=== PATIENT | female | born 1950 | race Caucasian/White ===

== ENCOUNTER 2016-08-16 07:33 | Day surgery (SDC) | payer BC ==
[2016-08-14 08:26] VITALS: BMI 40.7
[~2016-08-16 07:33] MED LIST: LACTATED RINGERS 1,000 ML IV SCH; LIDOCAINE 1% 20 ML VIAL (10MG/ML) FOR IV START INTRADERMA PRN
[2016-08-16 07:47] VITALS: RESP 16; TEMP 98.3
[2016-08-16] MEDS ORDERED: PROPOFOL 10 MG/ML 20 ML VIAL IV ONE (08:25)
--- NOTE | 2016-08-16 08:54 | P.PCN ---
Date of Procedure: 08/16/16 Preoperative Diagnosis: Postoperative Diagnosis: Procedure(s) Performed: BRIEF HISTORY: Patient is a 65-year-old pleasant white female, scheduled for an elective colonoscopy as a part of screening for colorectal neoplasia. PROCEDURE PERFORMED: Colonoscopy with snare polypectomy. PREOPERATIVE DIAGNOSIS: Screening for colon cancer. IV sedation per Anesthesia. PROCEDURE: After informed consent was obtained, the patient, was brought into the endoscopy unit. IV sedation was administered by Anesthesia under continuous monitoring. Digital rectal examination was normal. Initially the Olympus CF- 160 flexible video colonoscope was then inserted in the rectum, gradually advanced into the cecum without any difficulty. Careful examination was performed as the scope was gradually being withdrawn. Ileocecal valve and the appendiceal orifice were visualized and appeared normal. Prep was excellent. Mucosa of the cecum, ascending colon, transverse colon, descending colon, sigmoid colon, and rectum appeared normal. There was a 72 admitted to polyp noted in the rectosigmoid area which was removed by snare polypectomy. Scattered sigmoid diverticulosis seen. Retroflexion was performed in the rectum and no lesions were seen. The patient tolerated the procedure well. IMPRESSION: 7-8 mm recto sigmoid polyp status post polypectomy Scattered left-sided diverticulosis. RECOMMENDATIONS: Findings of this examination were discussed with the patient as well as her family. She was advised to follow with the biopsy results. If the biopsy shows a tubular adenoma she can have a repeat colonoscopy in 5 years. Implants: Indications for Procedure: Operative Findings: Description of Procedure:
[2016-08-16 09:15] LABS: Glucose,Whole Blood 96 mg/dL (75-99)
[2016-08-16 09:19] VITALS: BP 104/71; PULSE 58
== END 2016-08-16 09:46 | disposition home or self-care (01) ==
LOC: ORWHC2ENDO 07:33
PROVIDERS: ATTEND Internal Medicine Gastroenterology
DX: Z12.11 Encounter for screening for malignant neoplasm of colon (principal); D12.5 Benign neoplasm of sigmoid colon; K57.30 Diverticulosis of large intestine without perforation or abscess without bleeding; I10 Essential (primary) hypertension; E11.9 Type 2 diabetes mellitus without complications; K21.9 Gastro-esophageal reflux disease without esophagitis; Z79.84 Long term (current) use of oral hypoglycemic drugs; Z79.82 Long term (current) use of aspirin; Z79.899 Other long term (current) drug therapy; Z88.5 Allergy status to narcotic agent
CPT/HCPCS: 88305; 45385; J2704

== ENCOUNTER → 2016-09-12 | Outpatient (CLI) | payer BC ==
--- NOTE | 2016-09-13 08:59 | MM ---
Reason for exam: screening (asymptomatic). Last mammogram was performed 1 year and 3 months ago. History: Patient is postmenopausal. Benign stereotactic core biopsy of the right breast, July 19, 1999. Benign excisional biopsy of the right breast, July 12, 1997. Excisional biopsy of the right breast. Taking progesterone for 6 years. Physical Findings: A clinical breast exam by your physician is recommended on an annual basis and results should be correlated with mammographic findings. MG Screening Mammo w CAD Bilateral CC and MLO view(s) were taken. Prior study comparison: June 08, 2015, bilateral MG screening mammo w CAD. September 24, 2013, bilateral MG screening mammo w CAD. There are scattered fibroglandular densities. No significant changes when compared with prior studies. ASSESSMENT: Benign, BI-RAD 2 RECOMMENDATION: Routine screening mammogram of both breasts in 1 year.
== END | disposition home or self-care (01) ==
LOC: RADMAMWWP 12:18
PROVIDERS: ATTEND Family Medicine
DX: Z12.31 Encounter for screening mammogram for malignant neoplasm of breast (principal)

== ENCOUNTER → 2017-08-04 | Outpatient (CLI) | payer BC | END | disposition home or self-care (01) | LOC: LABWHC1 13:15 | PROVIDERS: ATTEND Orthopaedic Surgery Hand Surgery | DX: M65.341 Trigger finger, right ring finger (principal) | CPT/HCPCS: 93005 ==

== ENCOUNTER → 2019-05-05 | Outpatient (CLI) | payer BC ==
--- NOTE | 2019-05-05 08:33 | BD ---
EXAMINATION TYPE: Axial Bone Density DATE OF EXAM: 05/05/2019 COMPARISON: 2003 CLINICAL HISTORY: Z 13.820 Height: 65.5 Weight: 241.2 FRAX RISK QUESTIONS: Alcohol (3 or more units per day): no Family History (Parent hip fracture): no Glucocorticoids (More than 3mos): no (Ex: prednisone, prednisolone, methylprednisolone, dexamethasone, and hydrocortisone). History of Fracture in Adulthood: yes Secondary Osteoporosis: 1. Type 1 Diabetes: no 2. Hyperthyroidism: no 3. Menopause before 45: YES 4. Malnutrition: no 5. Chronic liver disease: no Rheumatoid Arthritis: no Current Tobacco Use: no RISK FACTORS HISTORY OF: Family History of Osteoporosis: no Active: yes Diet low in dairy products/other sources of calcium: at least one serving a day Postmenopausal woman: YES Take estrogen and/or progesterone medications: not now How long: progesterone about 6 years Lost more than 2 inches in height since high school: no, height at one time was about 67.5 inches Frequent falls: no Poor Health: no Hyperparathyroidism: no Adrenal Insufficiency: no MEDICATIONS: Prednisone or other steroids: no Thyroid Medications: no Osteoporosis Medications: no Additional Medications: Metformin ; blood pressure med Additional History: type 2 diabetic EXAM MEASUREMENTS: Bone mineral densitometry was performed using the [employer] System. Bone mineral density as measured about the Lumbar spine is: ----- L1-L4(G/cm2): 1.250 T Score Values are as follows: ----- L2: 1.2 ----- L3: 0.6 ----- L4: -0.5 ----- L1-L4: 0.6 Bone mineral density has: Increased 5.0% since study of: 11/15/2003 Bone mineral density about the R hip (g/cm2): 1.042 Bone mineral density about the L hip (g/cm2): 1.090 T Score values are as follows: -----R Neck: 0.0 -----L Neck: 0.4 -----R Total: 0.6 -----L Total: 0.7 Bone mineral density has: Decreased -2.0% since study of: 11/15/2003 IMPRESSION: Normal (Values between +1 and -1 indicate normal bone mass). Consider repeating this study in 5 year s or sooner if there is some new clinical indication. NOTE: T-SCORE=SD OF THE YOUNG ADULT MEAN.
--- NOTE | 2019-05-10 11:17 | MM ---
Reason for exam: screening (asymptomatic). Last mammogram was performed 2 years and 8 months ago. History: Patient is postmenopausal. Benign stereotactic core biopsy of the right breast, July 19, 1999. Benign excisional biopsy of the right breast, July 12, 1997. Excisional biopsy of the right breast. Taking progesterone for 6 years. Physical Findings: A clinical breast exam by your physician is recommended on an annual basis and results should be correlated with mammographic findings. MG Screening Mammo w CAD Bilateral CC and MLO view(s) were taken. Prior study comparison: September 12, 2016, bilateral MG screening mammo w CAD. June 08, 2015, bilateral MG screening mammo w CAD. There are scattered fibroglandular densities. Benign appearing bilateral calcifications. No suspicious abnormality. Right biopsy marker. No significant changes when compared with prior studies. ASSESSMENT: Benign, BI-RAD 2 RECOMMENDATION: Routine screening mammogram of both breasts in 1 year.
== END | disposition home or self-care (01) ==
LOC: RADMAMWWP 06:51
PROVIDERS: ATTEND Family Medicine
DX: Z12.31 Encounter for screening mammogram for malignant neoplasm of breast (principal); Z13.820 Encounter for screening for osteoporosis; M81.0 Age-related osteoporosis without current pathological fracture
CPT/HCPCS: 77067; 77080

== ENCOUNTER 2019-05-09 | Emergency (ER) | payer BC, MEDICARE | END 2019-05-09 07:47 | disposition home or self-care (01) | CPT/HCPCS: 30901; 36415; 85025; 96374; 99284 ==

== ENCOUNTER → 2021-08-17 | Outpatient (CLI) | payer MEDICARE, OTHER ==
--- NOTE | 2021-08-13 09:08 | P.PN ---
Progress Note - Text This is an evaluation prior to stress testing Patient referred by Dr. 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 fib I evaluated her prior to the stress test She is currently scheduled for Cardiolite stress test which I would cancel She is on losartan and hydrochlorothiazide blood pressure is normal I would recommend continuing losartan Hold hydrochlorothiazide for at least a week or 2 and reevaluate need for this Start metoprolol succinate 50 mrem daily for rate control of atrial fibrillation On very preliminary evaluation, her ALAYNA VASC score seems to be 3 and anticoagulation would be indicated She will see Dr. Millard tomorrow or day after tomorrow for reevaluation I would reschedule her stress test to Friday On that day if she is in sinus rhythm an exercise Cardiolite stress test can be performed If she is still in atrial fibrillation and is rate controlled then a Lexiscan Cardiolite stress test be performed If her rates are not controlled I would defer stress testing until rates are well controlled Hold off on 2-D echo and Doppler study until rates are well controlled Impression 70-year-old female with First documentation of A. fib A. fib with RVR Diabetes hemoglobin A1c 6.9 LDL 93, total cholesterol 170, HDL 55 TSH 1.9
[~2021-08-17] MED LIST changes: -LACTATED RINGERS 1,000 ML IV SCH; -LIDOCAINE 1% 20 ML VIAL (10MG/ML) FOR IV START INTRADERMA PRN; +REGADENOSON 0.4 MG/5 ML SYRINGE IV ONE
--- NOTE | 2021-08-17 10:54 | P.PN ---
Progress Note - Text This is a 70 year old female with a past medical history of Type 2 diabetes, hypertension, dyslipidemia. She follows with Dr. Millard. She was referred by Dr. Millard for stress test. On Friday08/13/2021, she was found to be in atrial fibrillation with RVR between 130 540 beats a minute at rest. Stress test was cancelled she was prescribed metoprolol succinate, and followed up with Dr. Millard. Stress test was rescheduled to today. She was in sinus mechanism prior to stress test. No symptoms of chest pain, shortness of breath or palpitations. She did have a few episodes of atrial fibrillation with controlled rates prior to stress test and spontaneously converted back to sinus mechanism. Plan for Lexiscan stress test today. Her ALAYNA VASC score is a 4 and anticoagulation is indicated. We will complete Lexiscan stress test today. Start Eliquis 5mg BID, prescription given to patient and she will receive a free month at the [facility] in the hospital. She will follow up with Dr. Bruner next week has an appointment on 08/21/2021. This was discussed with Dr. Bruner. Nurse practitioner note has been reviewed by physician. Signing provider agrees with the documented findings, assessment, and plan of care.
--- NOTE | 2021-08-17 11:03 | CA ---
Lexiscan Nuclear Stress Test Report Name: Lakisha Eastman Exam Date: 08/17/2021 10:28 Exam Location: [place] [facility] Ht (in): 65 Wt (lb): 254 BSA: 2.19 Ordering Phys: Galdino Millard MD Referring Phys: UMESH,, Technologist: Tomi Rhodes Age: 70 Gender: F : 1950 Procedure CPT: Indications: E11.9 SANDRA, I10 HTN, R06.09 DYSPNEA ICD-10 Codes: Patient History: Medications: HYDROCHLOROTHIAZIDE, METOPROLOL, ASA, MVI, METFORMIN, VIT D, LOBARTAIN, OMEPERAZOLE, ATORVASTATIN, MELATONIN Meds past 24 hrs: Pretest Chest Pain: STRESS TEST Lexiscan Protocol Exercise Duration (min:sec): 02:[address] Depressions (mm): Angina Score: Angel Score: Resting HR (bpm): 66 Peak HR (bpm): 88 Resting BP (mmHg): 131 / 84 Peak BP (mmHg): 163 / 87 MPHR: 152 Target HR: 129 % MPHR: 58 METS: 1.0 Total Dose: Peak Dose: Atropine: Double Product: 99962 BP Response: Stress Termination: Stress Symptoms: NO SYMPTOMS Stress Summary: ECG ANALYSIS Resting ECG: Stress ECG: CONCLUSIONS Baseline to EKG shows negatively oriented P waves in the inferior leads consistent with a low atrial focus/coronary sinus rhythm Normal heart rate and blood pressure response at baseline Baseline heart rate 68 beats a minute, Baseline blood pressure 131/80 Patient received Lexiscan infusion per protocol Heart rate and blood pressure remained stable No symptoms No ECG evidence for ischemia P waves normalized, upright P waves in the inferior leads during Lexiscan infusion Dr. Roverto Bruner MD (Electronically Signed) Final Date: 17 August 2021 11:02
--- NOTE | 2021-08-17 12:38 | NM ---
EXAMINATION TYPE: NM stress lexiscan cardiolite DATE OF EXAM: 08/17/2021 COMPARISON: NONE HISTORY: E11.9 SANDRA, I10 HTN, R06.09 DYSPNEA TECHNIQUE: After the intravenous administration of 9.76 mCi Tc 99m Sestamibi - Cardiolite resting SP ECT images acquired 50 minutes post injection. The patient received 0.4mg Lexiscan, 25.4 mCi Tc 99m Sestamibi - Stress images obtained [address] injection FINDINGS: Review of stress and rest SPECT images demonstrates reversible ischemia involving the apical lateral wall. Fixed defect anterior wall. Gated analysis shows normal wall motion with an estimated left vent ricular ejection fraction of 61 %. IMPRESSION: Findings felt to reflect a reversible ischemia apical lateral wall. Correlate clinically.
== END | disposition home or self-care (01) ==
LOC: RADNMMAIN 08-13 08:23
PROVIDERS: ATTEND Family Medicine
DX: E11.9 Type 2 diabetes mellitus without complications (principal); I10 Essential (primary) hypertension; R06.09 Other forms of dyspnea
CPT/HCPCS: 93017; 78452; A9500

== ENCOUNTER → 2021-12-12 | Outpatient (CLI) | payer MEDICARE, OTHER ==
--- NOTE | 2021-12-13 07:41 | MM ---
Reason for Exam: Screening (asymptomatic). Last mammogram was performed 2 year(s) and 7 month(s) ago. Patient History: Menarche at age 14. First Full-Term at age 22. Postmenopausal. Patient used Progesterone for 6 years. Excisional Biopsy on the Right side. 07/19/1999, Benign Stereotactic Core Biopsy on the right side. 07/12/1997, High risk Excisional Biopsy on the right side. Risk Values: Sarah Beth 5 year model risk: 2.3%. NCI Lifetime model risk: 7.4%. Prior Study Comparison: 06/08/2015 Bilateral Screening Mammogram, [facility]. 09/12/2016 Bilateral Screening Mammogram, [facility]. 05/05/2019 Bilateral Screening Mammogram, [facility]. Tissue Density: There are scattered fibroglandular densities. Findings: Analyzed By CAD. There are scattered small benign-appearing round calcifications bilaterally redemonstrated. Mammotome biopsy clip in the right breast is again seen. There is no suspicious group of microcalcifications or new suspicious mass in either breast. Overall Assessment: Benign, BI-RAD 2 Management: Screening Mammogram of both breasts in 1 year. A clinical breast exam by your physician is recommended on an annual basis and results should be correlated with mammographic findings. Electronically signed and approved by: Eliu Ortiz M.D.
--- NOTE | 2021-12-13 07:41 | MM ---
Reason for Exam: Screening (asymptomatic). Last mammogram was performed 2 year(s) and 7 month(s) ago. Patient History: Menarche at age 14. First Full-Term at age 22. Postmenopausal. Patient used Progesterone for 6 years. Excisional Biopsy on the Right side. 07/19/1999, Benign Stereotactic Core Biopsy on the right side. 07/12/1997, High risk Excisional Biopsy on the right side. Risk Values: Sarah Beth 5 year model risk: 2.3%. NCI Lifetime model risk: 7.4%. Prior Study Comparison: 06/08/2015 Bilateral Screening Mammogram, [facility]. 09/12/2016 Bilateral Screening Mammogram, [facility]. 05/05/2019 Bilateral Screening Mammogram, [facility]. Tissue Density: There are scattered fibroglandular densities. Findings: Analyzed By CAD. There are scattered small benign-appearing round calcifications bilaterally redemonstrated. Mammotome biopsy clip in the right breast is again seen. There is no suspicious group of microcalcifications or new suspicious mass in either breast. Overall Assessment: Benign, BI-RAD 2 Management: Screening Mammogram of both breasts in 1 year. A clinical breast exam by your physician is recommended on an annual basis and results should be correlated with mammographic findings. Electronically signed and approved by: Eliu Ortiz M.D.
== END | disposition home or self-care (01) ==
LOC: RADMAMWWP 09:21
PROVIDERS: ATTEND Family Medicine
DX: Z12.31 Encounter for screening mammogram for malignant neoplasm of breast (principal)
CPT/HCPCS: 77063; 77067

== ENCOUNTER → 2022-02-12 | Outpatient (CLI) | payer MEDICARE, OTHER ==
[2022-02-12 14:31] LABS: HCT 43.4 % (37.2-46.3); MCH 29.7 pg (27.0-32.0); MCHC 32.3 g/dL (32.0-37.0); MCV 91.9 fL (80.0-97.0); Mean Platelet Volume 11.2 fL (9.5-12.2); NRBC Per 100 WBC 0 /100 WBCS (0.0-0.0); Platelet Count 356 X 10*3/uL (140-440); RBC 4.72 X 10*6/uL (4.10-5.20); RDW 14.2 % (11.5-14.5); WBC 10.47 X 10*3/uL (4.50-10.00)
== END | disposition home or self-care (01) ==
LOC: LABPAT 09:03
PROVIDERS: ATTEND Internal Medicine
DX: Z01.812 Encounter for preprocedural laboratory examination (principal)
CPT/HCPCS: 85027

== ENCOUNTER 2022-02-14 07:09 | Day surgery (SDC) | payer MEDICARE, OTHER ==
[~2022-02-14 07:09] MED LIST changes: +ALPRAZolam 0.25 MG TAB PO PRN; +ALPRAZolam 0.5 MG TAB PO PRN; +ASPIRIN 325 MG TAB PO ONE; +ATORVASTATIN 80 MG TAB PO ONE; +HEPARIN SODIUM,PORCINE 10,000 UNIT in SODIUM CHLORIDE 0.9% 1,000 ML IRRIGATION PRN; +HEPARIN SODIUM,PORCINE 2,500 UNIT in SODIUM CHLORIDE 0.9% 250 ML IRRIGATION PRN; +NITROGLYCERIN SL TABS 0.4 MG TAB SUBLINGUAL PRN; -REGADENOSON 0.4 MG/5 ML SYRINGE IV ONE; +SODIUM CHLORIDE 0.9% 1,000 ML in EMPTY BAG 1 BAG IV SCH
[2022-02-14 07:47] VITALS: RESP 18; TEMP 98.1
[2022-02-14 07:49] LABS: Glucose,Whole Blood 116 mg/dL (70-110)
[2022-02-14 07:55] LABS: Basophils # (A) 0.1 k/uL (0-0.2); Basophils % (A) 1 %; Eosinophils # (A) 0.2 k/uL (0-0.7); Eosinophils % (A) 2 %; HCT 44.7 % (34.0-46.0); HGB 14.4 gm/dL (11.4-16.0); Lymphocytes # (A) 2.7 k/uL (1.0-4.8); Lymphocytes % (A) 23 %; MCH 29.5 pg (25.0-35.0); MCHC 32.1 g/dL (31.0-37.0); MCV 91.9 fL (80.0-100.0); Mean Platelet Volume 8.9; Monocytes # (A) 0.6 k/uL (0-1.0); Monocytes % (A) 5 %; Neutrophils # (A) 7.7 k/uL (1.3-7.7); Neutrophils % (A) 66 %; Platelet Count 348 k/uL (150-450); RBC 4.87 m/uL (3.80-5.40); RDW 13.9 % (11.5-15.5); WBC 11.6 k/uL (3.8-10.6)
[2022-02-14 08:02] LABS: African American GFR (CKD) >90 (>60 ml/min/1.73 sqM); Anion Gap 1 mmol/L; Blood Urea Nitrogen 14 mg/dL (7-17); Carbon Dioxide 19 mmol/L (22-30); Chloride 122 mmol/L (98-107); Glucose 87 mg/dL (74-99); Non-African American GFR(CKD) >90 (>60 ml/min/1.73 sqM); Sodium 142 mmol/L (137-145)
[2022-02-14 08:04] LABS: Potassium 2.4 mmol/L (3.5-5.1)
[2022-02-14 08:07] LABS: Calcium 5.9 mg/dL (8.4-10.2)
[2022-02-14 08:38] LABS: African American GFR (CKD) >90 (>60 ml/min/1.73 sqM); Anion Gap 7 mmol/L; Blood Urea Nitrogen 21 mg/dL (7-17); Calcium 9.6 mg/dL (8.4-10.2); Carbon Dioxide 26 mmol/L (22-30); Chloride 106 mmol/L (98-107); Glucose 128 mg/dL (74-99); Non-African American GFR(CKD) 84 (>60 ml/min/1.73 sqM); Potassium 4.1 mmol/L (3.5-5.1); Sodium 139 mmol/L (137-145)
[2022-02-14] MEDS ORDERED: VERAPAMIL 2.5 MG/ML 2 ML AMP ONE (10:01)
[2022-02-14] MEDS ORDERED: fentaNYL (PF) 50 MCG/ML 2 ML AMP ONE (10:01)
[2022-02-14] MEDS ORDERED: HEPARIN SODIUM 1,000 UN/ML (10ML VL) ONE (10:01)
[2022-02-14] MEDS ORDERED: MIDAZOLAM 2 MG/2 ML VIAL IV ONE (10:15)
[2022-02-14] MEDS ORDERED: fentaNYL (PF) 50 MCG/ML 2 ML AMP IV ONE (10:15)
[2022-02-14] MEDS ORDERED: LIDOCAINE 1% INJ 10MG/ML (5 ML VIAL-PF) SQ ONE (10:16)
[2022-02-14] MEDS ORDERED: VERAPAMIL SYRINGE (5 MG/10 ML) INTRAARTER ONE (10:17)
[2022-02-14] MEDS ORDERED: HEPARIN SODIUM 1,000 UN/ML (10ML VL) IV ONE (10:20)
[2022-02-14] MEDS ORDERED: IOPAMIDOL-370 125ML BTL INJ ONE (10:28)
--- NOTE | 2022-02-14 10:37 | P.CARDCATH ---
Description of Procedure: PROCEDURES PERFORMED: Left heart catheterization, bilateral coronary angiography INDICATION: Abnormal stress test CONSENT:I have discussed the risks, benefits and alternative therapies for the above-mentioned procedure and for both sedation/analgesia as well as necessary blood product administration, if indicated, as they pertain to this patient. The patient has indicated understanding and acceptance of the risks and procedures discussed. PROCEDURE: After the risks, benefits and alternatives of the above mentioned procedure explained in detail with the patient, informed consent was obtained. Patient was taken to the catheterization lab and prepped and draped in usual fashion. 1% lidocaine was used to anesthetize the right radial artery. A 6- [place] sheath was placed in the right radial artery using modified Seldinger technique. Left coronary angiography was performed with a 5-[place] JL 3.5 catheter and right coronary angiography was performed with a 5-[place] JR5 catheter in various views. A 5-[place] FR5 catheter was inserted into the left ventricle and pressure measurements were obtained. The right radial sheath was removed and a TR band was placed with hemostasis achieved. The patient tolerated the procedure well. Patient was transported back to the post catheterization holding area in stable condition. Conscious Sedation: Patient was monitored under the direct supervision of vision of myself for conscious sedation using Versed and fentanyl for a total duration of 14 minutes HEMODYNAMICS: Ao: 134/76 LV: 133/14, LVEDP 26 SELECTIVE CORONARY ARTERIOGRAPHY: LEFT MAIN: The left main is a large caliber vessel which bifurcates into the LAD and circumflex. There is no significant stenosis. LEFT ANTERIOR DESCENDING CORONARY ARTERY: LAD is a large caliber vessel which wraps around to the apex. There is no significant stenosis. LEFT CIRCUMFLEX CORONARY ARTERY: Left circumflex is a moderate caliber vessel with mild ostial OM1 stenosis and otherwise normal. RIGHT CORONARY ARTERY: The right coronary artery is a large caliber vessel which gives off a PDA and PLV branch and is the dominant vessel. There is a mid RCA 20% stenosis and otherwise normal. . FINAL IMPRESSION: 1. Relatively nornal coronary arteries other than mild luminal irregularities with 20% mid RCA and 20% ostial OM2 stenosis 2. Elevated left sided filling pressures PLAN: 1. Aggressive risk factor modification per most recent ACC/AHA guidelines. 2. Follow-up in the office in 1-2 weeks. 3. If continues to have HANSEN, consider increasing diuretic given significantly elevated LVEDP.
[2022-02-14 14:31] VITALS: BP 145/64
[2022-02-14 14:33] VITALS: PULSE 64
== END 2022-02-14 14:30 | disposition home or self-care (01) ==
LOC: CATHCVL 07:09
PROVIDERS: ATTEND Internal Medicine
DX: I25.10 Atherosclerotic heart disease of native coronary artery without angina pectoris (principal); I48.0 Paroxysmal atrial fibrillation; I10 Essential (primary) hypertension; E78.5 Hyperlipidemia, unspecified; E11.9 Type 2 diabetes mellitus without complications; R94.39 Abnormal result of other cardiovascular function study
CPT/HCPCS: 93458; 80048; 85025; C1894; J2250; J2001; J3010; J1644; Q9967

== ENCOUNTER → 2023-01-02 | Outpatient (CLI) | payer MEDICARE, OTHER ==
[2023-01-02 16:27] LABS: Basophils # (A) 0.05 X 10*3/uL (0.00-0.10); Basophils % (A) 0.5 %; Eosinophils # (A) 0.17 X 10*3/uL (0.04-0.35); Eosinophils % (A) 1.6 %; HCT 45.1 % (37.2-46.3); HGB 14.1 g/dL (12.0-15.0); Lymphocytes # (A) 2.42 X 10*3/uL (0.90-5.00); Lymphocytes % (A) 22.4 %; MCH 28.8 pg (27.0-32.0); MCHC 31.3 g/dL (32.0-37.0); Mean Platelet Volume 12.4 FL (9.5-12.2); Monocytes # (A) 0.81 X 10*3/uL (0.20-1.00); Monocytes % (A) 7.5 %; NRBC Per 100 WBC 0 X 10*3/uL (0.00-0.01); Neutrophils % (A) 67.7 %; Platelet Count 382 X 10*3/uL (140-440); RDW 14.4 % (11.5-14.5); WBC 10.78 X 10*3/uL (4.50-10.00)
[2023-01-02 16:34] LABS: T4, Free (Free Thyroxine) 1.17 ng/dL (0.80-1.80)
[2023-01-02 17:08] LABS: ALT 32 U/L (8-44); AST 24 U/L (13-35); Albumin 4.4 g/dL (3.8-4.9); Albumin/Globulin Ratio 1.83 Ratio (1.60-3.17); Alkaline Phosphatase 64 U/L (41-126); Blood Urea Nitrogen 20.4 mg/dL (9.0-27.0); Calcium 10.2 mg/dL (8.7-10.3); Carbon Dioxide 22.7 mmol/L (21.6-31.8); Chloride 102 mmol/L (96-109); Chol/HDL Ratio 2.95 Ratio; Globulin 2.4 g/dL (1.6-3.3); Glucose 136 mg/dL (70-110); Potassium 4.2 mmol/L (3.5-5.5); Sodium 140 mmol/L (135-145); Total Bilirubin 0.3 mg/dL (0.3-1.2); Total Protein 6.8 g/dL (6.2-8.2)
== END | disposition home or self-care (01) ==
LOC: LABWHC1 07:49
PROVIDERS: ATTEND Family Medicine
DX: Z11.59 Encounter for screening for other viral diseases (principal); E11.69 Type 2 diabetes mellitus with other specified complication
CPT/HCPCS: 36415; 80053; 80061; 83036; 84439; 84443; 85025; 86803

== ENCOUNTER → 2023-01-20 | Outpatient (CLI) | payer MEDICARE, OTHER ==
--- NOTE | 2023-01-20 12:11 | BD ---
EXAMINATION TYPE: Axial Bone Density DATE OF EXAM: 01/20/2023 CLINICAL HISTORY: 72 years old Female. ICD-10 CODE: Z78.0 menopause Height: 65 Weight: 263.0 FRAX RISK QUESTIONS: Alcohol (3 or more units per day): no Family History (Parent hip fracture): no Glucocorticoids (More than 3mos): no History of Fracture in Adulthood: no Secondary Osteoporosis: 1. Type 1 Diabetes: no 2. Hyperthyroidism: no 3. Menopause before 45: yes 4. Malnutrition: no 5. Chronic liver disease: no Rheumatoid Arthritis: no Current Tobacco Use: no RISK FACTORS HISTORY OF: Hip Fracture (Right/Left): no Spine Fracture: no History of Wrist Fracture: no Surgery to Spine/Hip(right/left)/Wrist (right/left): no Family History of Osteoporosis: no Active: somewhat Diet low in dairy products/other sources of calcium: no Postmenopausal woman: yes Take estrogen and/or progesterone medications: no Lost more than 2 inches in height since high school: yes Frequent falls: no Poor Health: no Hyperparathyroidism: no Adrenal Insufficiency: no MEDICATIONS: Prednisone or other steroids: no Thyroid Medications: no Osteoporosis Medications: no Additional Medications: Cholesterol Med, BP Med x2, Vit D, Multi. Vit, Metformin Additional History: EXAM MEASUREMENTS: Bone mineral densitometry was performed using the [employer] System. Bone mineral density as measured about the Lumbar spine is: ----- L1-L4(G/cm2): 1.301 T Score Values are as follows: ----- L1: 1.6 ----- L2: 0.9 ----- L3: 0.4 ----- L4: 1.0 ----- L1-L4: 1.1 Z Score Values are as follows: ----- L1: 2.1 ----- L2: 1.4 ----- L3: 0.9 ----- L4: 1.5 ----- L1-L4: 1.5 Bone mineral density has: increased 4.1 % since study of: 05/05/2019 Bone mineral density about the R hip (g/cm2): 1.115 Bone mineral density about the L hip (g/cm2): 1.125 T Score values are as follows: -----R Neck: 0.1 -----L Neck: 0.1 -----R Total: 0.8 -----L Total: 0.9 Z Score values are as follows: -----R Neck: 1.0 -----L Neck: 1.0 -----R Total: 1.5 -----L Total: 1.6 Bone mineral density has: increased 2.8 % since study of: 05/05/2019 FRAX%s: The graph provided illustrates a 5.9% chance for a major osteoporotic fx and a 0.3% chance fo r the hips probability for fx in 10 years time. IMPRESSION: Normal (Values between +1 and -1 indicate normal bone mass). Consider repeating this study in 5 year s or sooner if there is some new clinical indication. NOTE: T-SCORE=SD OF THE YOUNG ADULT MEAN.
--- NOTE | 2023-01-21 12:23 | MM ---
Reason for Exam: Screening (asymptomatic). Last mammogram was performed 1 year(s) and 1 month(s) ago. Patient History: Menarche at age 14. First Full-Term at age 22. Postmenopausal. Patient used Progesterone for 6 years. Excisional Biopsy on the Right side. 07/19/1999, Benign Stereotactic Core Biopsy on the right side. 07/12/1997, High risk Excisional Biopsy on the right side. Risk Values: Sarah Beth 5 year model risk: 2.3%. NCI Lifetime model risk: 6.7%. Prior Study Comparison: 09/12/2016 Bilateral Screening Mammogram, [facility]. 05/05/2019 Bilateral Screening Mammogram, [facility]. 12/12/2021 Bilateral MG 3D screening mammo w/cad, [facility]. Tissue Density: The breast tissue is heterogeneously dense. This may lower the sensitivity of mammography. Findings: Analyzed By CAD. There is no suspicious group of microcalcifications or new suspicious mass in either breast. Overall Assessment: Negative, BI-RAD 1 Management: Screening Mammogram of both breasts in 1 year. . Patient should continue monthly self-breast exams. A clinical breast exam by your physician is recommended on an annual basis. This exam should not preclude additional follow-up of suspicious palpable abnormalities. Note on Sarah Beth scores and lifetime risk: 1. A Sarah Beth score greater than 3% is considered moderate risk. If this is the case, consider specialist referral to assess eligibility for a risk reducing agent. 2. If overall lifetime risk for the development of breast cancer is 20% or higher, the patient may qualify for future screening with alternating mammogram and breast MRI. Electronically signed and approved by: Yuval Arvizu M.D. Radiologis
== END | disposition home or self-care (01) ==
LOC: RADBDWWP 07:47
PROVIDERS: ATTEND Family Medicine
DX: Z12.31 Encounter for screening mammogram for malignant neoplasm of breast (principal); Z78.0 Asymptomatic menopausal state
CPT/HCPCS: 77063; 77067; 77080

== ENCOUNTER 2023-02-14 07:22 | Day surgery (SDC) | payer MEDICARE, OTHER ==
[2023-02-11 12:49] VITALS: BMI 41.9
[~2023-02-14 07:22] MED LIST changes: -ALPRAZolam 0.25 MG TAB PO PRN; -ALPRAZolam 0.5 MG TAB PO PRN; -ASPIRIN 325 MG TAB PO ONE; -ATORVASTATIN 80 MG TAB PO ONE; -HEPARIN SODIUM,PORCINE 10,000 UNIT in SODIUM CHLORIDE 0.9% 1,000 ML IRRIGATION PRN; -HEPARIN SODIUM,PORCINE 2,500 UNIT in SODIUM CHLORIDE 0.9% 250 ML IRRIGATION PRN; +LACTATED RINGERS 1,000 ML IV SCH; -NITROGLYCERIN SL TABS 0.4 MG TAB SUBLINGUAL PRN; -SODIUM CHLORIDE 0.9% 1,000 ML in EMPTY BAG 1 BAG IV SCH
[2023-02-14 08:04] LABS: Glucose,Whole Blood 131 mg/dL (70-110)
[2023-02-14 08:23] VITALS: TEMP 98.2
[2023-02-14] MEDS ORDERED: LIDOCAINE 1% INJ 10MG/ML (20 ML MDV) ONE (08:54)
[2023-02-14] MEDS ORDERED: PROPOFOL 10 MG/ML 20 ML VIAL IV ONE (08:54)
--- NOTE | 2023-02-14 09:09 | P.PCN ---
Date of Procedure: 02/14/23 Procedure(s) Performed: BRIEF HISTORY: Patient is a 72-year-old pleasant white female scheduled for an elective colonoscopy as a part of evaluation of prior history of colon polyps. Last colonoscopy was 6 years ago. PROCEDURE PERFORMED: Colonoscopy snare polypectomy. PREOPERATIVE DIAGNOSIS: History of colon polyps. IV sedation per Anesthesia. PROCEDURE: After informed consent was obtained, the patient, was brought into the endoscopy unit. IV sedation was administered by Anesthesia under continuous monitoring. Digital rectal examination was normal. Initially the Olympus CF-160 flexible video colonoscope was then inserted in the rectum, gradually advanced into the cecum without any difficulty. Careful examination was performed as the scope was gradually being withdrawn. Ileocecal valve and the appendiceal orifice were visualized and appeared normal. Prep was excellent. Mucosa of the cecum, ascending colon, transverse colon, descending colon, sigmoid colon, appeared normal. In the rectosigmoid colon at 20 cm from the anal verge there was a 5 mm and 1 cm polyp both of which were removed by snare polypectomy. Rest of the rectum appeared normal. scattered sigmoid diverticulosis. Retroflexion was performed in the rectum and no lesions were seen. The patient tolerated the procedure well. IMPRESSION: 5 mm and 1 cm rectosigmoid polyp status post polypectomy Scattered sigmoid diverticulosis RECOMMENDATIONS: Findings of this examination were discussed with the patient is well as his family. She was advised to with the biopsy results. If the biopsy results adenoma she can have a repeat colonoscopy in 3 years .
[2023-02-14 09:39] VITALS: BP 100/65; PULSE 70
[2023-02-14 09:40] VITALS: RESP 15
== END 2023-02-14 09:45 | disposition home or self-care (01) ==
LOC: ORWHC2ENDO 07:22
PROVIDERS: ATTEND Internal Medicine Gastroenterology
DX: Z12.11 Encounter for screening for malignant neoplasm of colon (principal); D12.7 Benign neoplasm of rectosigmoid junction; K57.30 Diverticulosis of large intestine without perforation or abscess without bleeding; Z86.010 Personal history of colon polyps; Z80.0 Family history of malignant neoplasm of digestive organs
CPT/HCPCS: 88305; 45385; J2001; J2704

== ENCOUNTER → 2023-04-08 | Outpatient (CLI) | payer MEDICARE, OTHER | LOC: CPPFTMAIN 07:21 | PROVIDERS: ATTEND Family Medicine | DX: R06.09 Other forms of dyspnea (principal); Z88.8 Allergy status to other drugs, medicaments and biological substances; Z88.5 Allergy status to narcotic agent | CPT/HCPCS: 94060; 94726; 94729 ==

== ENCOUNTER → 2024-01-23 | Outpatient (CLI) | payer MEDICARE, OTHER ==
--- NOTE | 2024-01-26 11:56 | MM ---
Reason for Exam: Screening (asymptomatic). Last screening mammogram was performed 12 month(s) ago. Patient History: Menarche at age 14. First Full-Term at age 22. Postmenopausal. Patient used Progesterone for 6 years. Excisional Biopsy on the Right side. 07/19/1999, Benign Stereotactic Core Biopsy on the right side. 07/12/1997, High risk Excisional Biopsy on the right side. Risk Values: Sarah Beth 5 year model risk: 2.3%. NCI Lifetime model risk: 6.4%. Prior Study Comparison: 05/05/2019 Bilateral Screening Mammogram, [facility]. 12/12/2021 Bilateral MG 3D screening mammo w/cad, [facility]. 01/20/2023 Bilateral MG 3D screening mammo w/cad, [facility]. Tissue Density: There are scattered areas of fibroglandular density. Findings: Analyzed By CAD. Benign bilateral oil cyst calcifications. There is no suspicious group of microcalcifications or new suspicious mass in either breast. Overall Assessment: Benign, BI-RAD 2 Management: Screening Mammogram of both breasts in 1 year. Patient should continue monthly self-breast exams. A clinical breast exam by your physician is recommended on an annual basis. This exam should not preclude additional follow-up of suspicious palpable abnormalities. Note on Sarah Beth scores and lifetime risk: 1. A Sarah Beth score greater than 3% is considered moderate risk. If this is the case, consider specialist referral to assess eligibility for a risk reducing agent. 2. If overall lifetime risk for the development of breast cancer is 20% or higher, the patient may qualify for future screening with alternating mammogram and breast MRI. [facility], , 01/26/2024 11:54 AM. Electronically signed and approved by: Windy Marks M.D. Radiologist
== END | disposition home or self-care (01) ==
LOC: RADMAMWWP 06:58
PROVIDERS: ATTEND Family Medicine
DX: Z12.31 Encounter for screening mammogram for malignant neoplasm of breast (principal); Z78.0 Asymptomatic menopausal state; R92.323 Mammographic fibroglandular density, bilateral breasts
CPT/HCPCS: 77063; 77067